=== PATIENT | female | born 1950 | race Caucasian/White ===

== ENCOUNTER → 2017-04-12 | Outpatient (CLI) | payer OTHER, MEDICARE ==
[~2017-04-12] MED LIST: CEPH-13 PO; DIPH-466 PO; ESTR0.5T16 PO; FEXO30TA36 PO; OLME5TAB8 PO; PHEN200T32 PO; PRE10 PO
== END ==
LOC: LAB 15:00
PROVIDERS: ATTEND Nurse Practitioner Family
DX: E83.19 Other disorders of iron metabolism (principal)
CPT/HCPCS: 36415; 85014; 99195

== ENCOUNTER → 2017-06-02 | Outpatient (CLI) | payer OTHER ==
[2017-06-02 14:33] VITALS: BP 130/90
[2017-06-02 15:59] VITALS: BP 136/92
== END ==
LOC: SPU 07:39
PROVIDERS: ATTEND Nurse Practitioner Family
DX: E83.19 Other disorders of iron metabolism (principal)
CPT/HCPCS: 85014; 99195

== ENCOUNTER → 2017-08-12 | Outpatient (CLI) | payer OTHER | LOC: SPU 08-04 07:34 | PROVIDERS: ATTEND Nurse Practitioner Family | DX: E83.19 Other disorders of iron metabolism (principal) | CPT/HCPCS: 85014; 99195 ==

== ENCOUNTER → 2017-12-16 | Outpatient (CLI) | payer OTHER | LOC: LAB 12:43 | PROVIDERS: ATTEND Urology | DX: N39.0 Urinary tract infection, site not specified (principal); R82.79 Other abnormal findings on microbiological examination of urine | CPT/HCPCS: 81001; 87088 ==

== ENCOUNTER 2017-12-27 08:59 | Outpatient (RCR) | payer OTHER ==
[2017-09-29 16:13] VITALS: BP 148/90
[2017-11-03 13:19] VITALS: BP 133/83
[2017-11-03 13:52] VITALS: BP 134/90
[2017-12-27] MEDS ORDERED: ALPR-429 PO (09:14)
[2017-12-27] MEDS ORDERED: NORE1TAB PO (09:14)
[2017-12-27] MEDS ORDERED: LISI2.5T60 PO (09:14)
[2017-12-27] MEDS ORDERED: FURO20TA19 PO (09:14)
== END 2017-12-27 10:33 | disposition home or self-care (01) ==
LOC: ONC 08:59 → SPU 10:33
PROVIDERS: ATTEND Nurse Practitioner Family
DX: E83.19 Other disorders of iron metabolism (principal)
CPT/HCPCS: 36415; 82728; 85014; 85018

== ENCOUNTER 2018-03-10 14:27 | Outpatient (RCR) | payer OTHER ==
[2017-12-27 09:14] VITALS: BP 147/90
--- NOTE | 2017-12-28 18:24 | ONCOLOGY FOLLOW UP NOTE ---
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 She is here for followup. HISTORY OF PRESENT ILLNESS Ms. Sofia returns. Her history is consistent with hemochromatosis as she had significant elevated ferritin in her premenopausal life many years ago and did receive the recommendation of phlebotomy. This improved quickly; however, when she became postmenopausal, her issues recurred. Her ferritin has been as high as 1600 in 2016. She has been getting phlebotomies monthly since that time which have only improved her ferritin down to 290. 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 She does struggle with some mild obstructive sleep apnea, intolerance of poor air quality with migraine headaches and other symptoms similar to asthma. She is having a very particular time this year given the poor air quality. 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 No new symptoms. Her ferritin has been improved. She is wondering if she can reduce the frequency of her phlebotomies from once a month to every two months, and I think this is reasonable. While I would like to get her ferritin below 100, she does not have the formal diagnosis of hemochromatosis and does have the potential to become more anemic if we push her level down further; this, I think an appropriate goal is to keep her ferritin less than 500 to balance these issues. She understands I would like to be as close to 100 as possible, though. PAST MEDICAL HISTORY 1. Mild obstructive sleep apnea. 2. Reactive asthma to air allergens, particularly in smoke. 3. Elevated ferritin, strongly suspect hereditary hemochromatosis, but not a classical form. 4. Elevated blood pressure. 5. Anxiety. MEDICATIONS 1. Lasix 20 mg as needed. 2. Xanax 0.5 mg as needed. 3. Lisinopril 2.5 mg daily. 4. Preeti daily. 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 FAMILY HISTORY She states that her mother likely had similar problems, but not definitive. REVIEW OF SYSTEMS CONSTITUTIONAL: No fevers, chills, significant fatigue, or weight loss. She has had some weight gain in the postmenopausal phase, but I do not think this is related. PSYCHIATRIC: Controlled anxiety. Otherwise negative. HEENT: Positive migraine headaches intermittently. CARDIOVASCULAR: No chest pain, dyspnea on exertion, edema, issues with her heart. RESPIRATORY: Positive need for nocturnal oxygen with sleep apnea. She has started CPAP as well, and this has been helpful. GASTROINTESTINAL: No nausea or vomiting. GENITOURINARY: No dysuria or hematuria. MUSCULOSKELETAL: No weakness or joint pain. ENDOCRINE: No heat or cold intolerance. Remainder of 14 review of systems otherwise negative. PHYSICAL EXAMINATION VITAL SIGNS: Blood pressure 147/90, pulse 97, respiratory rate 16, temperature 98.7 Fahrenheit, oxygen saturation 92% on room air. Weight 87.6 kg. Pain 2/10, fatigue 8/10. GENERAL: Stable condition, resting comfortably in chair. HEENT: Normocephalic, atraumatic. CARDIOVASCULAR: Regular rate and rhythm. LUNGS: Clear. ABDOMEN: Soft, nontender. No organomegaly or masses. EXTREMITIES: No clubbing, cyanosis, or edema. SKIN: No concerning findings. Remainder of physical exam otherwise unremarkable. IMPRESSION AND PLAN Ms. Sofia is a pleasant, 67-year-old female with the followin. Elevated ferritin, and I strongly suspect a variant of hereditary hemochromatosis given the history. She requires phlebotomies every one to two months. With this, her ferritin is only down to 290s, so I anticipate this will be a life-long issue. With that, though, I believe we can prevent end-organ damage with her liver, heart, or joints. She has no arthralgias of concern, thankfully. I answered all of her many questions about hemochromatosis and iron management today. It was a great pleasure meeting her today. Will continue to follow her in our clinic. Given the change in the frequency, I would like her to see our nurse practitioner around the new year, and then I will see her approximately six months after that time if she continues to be doing well. If her ferritin goes above 500, she will need to increase the frequency of her phlebotomies. OSORIO
[2018-01-03 10:12] VITALS: BP 181/88
[~2018-03-10 14:27] MED LIST changes: +ALPR-429 PO; +FURO20TA19 PO; +LISI2.5T60 PO; +NORE1TAB PO
[2018-03-10 14:57] VITALS: BP 143/77
[2018-03-10 15:17] LABS: PLATELET COUNT, AUTOMATED 214 K/uL (150-450)
== END 2018-03-27 ==
LOC: SPU 14:27
PROVIDERS: ATTEND Internal Medicine
DX: R79.89 Other specified abnormal findings of blood chemistry (principal); Z78.0 Asymptomatic menopausal state; Z79.899 Other long term (current) drug therapy
CPT/HCPCS: 36415; 85014; 85025; 99212

== ENCOUNTER 2018-06-29 14:58 | Outpatient (RCR) | payer OTHER ==
[2018-04-12 14:44] VITALS: BP 138/85
[2018-04-12 15:36] VITALS: BP 121/87
[2018-05-24 10:04] VITALS: BP 145/89
--- NOTE | 2018-05-24 13:02 | SCH[facility]ER ONCOLOGY NOTE ---
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 She did not test positive for the classical forms but her history is very consistent with this. Here for followup. HISTORY OF PRESENT ILLNESS Ms. Sofia returns. As noted, her history is consistent with hemochromatosis and her ferritins range between 200 and 600 with phlebotomies. Her ferritin has been as high at 1600 in 2016 when she was diagnosed. She had elevated ferritin in her premenopausal life and did receive the recommendation of phlebotomy. However, this did not become clinically significant until she became postmenopausal. We are trying to do phlebotomy every one to two months. We recently extended the interval between each phlebotomy but now we need to increase the frequency again as her levels have gone up. She has mild obstructive sleep apnea, which is now treat with CPAP and this is very helpful. She does struggle with poor air quality with migraines and symptoms similar to asthma. She continues to work full-time and has multiple classes today. We are trying to keep her ferritin below 500 while balancing anemia. Ideally, it would be as close to 100 as possible but this has been struggle as she becomes anemic. PAST MEDICAL HISTORY 1. Mild obstructive sleep apnea. 2. Reactive asthma to air allergens, particularly in smoke. 3. Elevated ferritin, strongly suspect hereditary hemochromatosis, but not a classical form. 4. Elevated blood pressure. 5. Anxiety. MEDICATIONS 1. Lasix 20 mg as needed. 2. Xanax 0.5 mg as needed. 3. Lisinopril 2.5 mg daily. 4. Preeti daily. 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 FAMILY HISTORY She states that her mother likely had similar problems, but not definitive. REVIEW OF SYSTEMS CONSTITUTIONAL: No fevers, chills, significant fatigue, or weight loss. She has had some weight gain in the postmenopausal phase, but I do not think this is related. PSYCHIATRIC: Controlled anxiety. Otherwise negative. HEENT: Positive migraine headaches intermittently. CARDIOVASCULAR: No chest pain, dyspnea on exertion, edema, issues with her heart. RESPIRATORY: Positive need for nocturnal oxygen with sleep apnea. She has started CPAP as well, and this has been helpful. GASTROINTESTINAL: No nausea or vomiting. GENITOURINARY: No dysuria or hematuria. MUSCULOSKELETAL: No weakness or joint pain. ENDOCRINE: No heat or cold intolerance. Remainder of 14 review of systems otherwise negative. PHYSICAL EXAMINATION VITAL SIGNS: Blood pressure 145/80, pulse 81, respiratory rate 16, temperature 97.7 Fahrenheit, oxygen saturation 96% on room air. Weight 87.5 kg. Pain 0/10, fatigue 3/10, which she attributes to a recent change in her thyroid medication. GENERAL: Stable condition, resting comfortably in chair. HEENT: Normocephalic, atraumatic. CARDIOVASCULAR: Regular rate and rhythm. LUNGS: Clear. ABDOMEN: Soft, nontender, nondistended. EXTREMITIES: No clubbing, cyanosis, or edema. Remainder of physical exam otherwise unremarkable. IMPRESSION AND PLAN Ms. Sofia is a very pleasant, 67-year-old female with the followin. Elevated ferritin and I strongly suspect a variant of hereditary hemochromatosis given her history. She requires phlebotomies every one to two months. We will change her threshold to 36% for hematocrit instead of 42%. I answered all of her many questions today about hemochromatosis and iron management as well as ferritin and acute phase reactants. 2. Hypothyroidism. She recently re-started levothyroxine generic but is having side effects, which may be related to an additive in the medication as I would expect her energy to improve, not worsen with replacement. I recommend that the primary care provider consider transitioning to Synthroid or Parnell Thyroid. We discussed the pros and cons of each of these including cost with Synthroid as well as lack of consistent dose with the Parnell Thyroid. However, given the fact that I am worried she is reacting to something in the generic levothyroxine, I think this is appropriate. I answered all of her many questions today. I would like to see her every three to six months. Billing: Return visit, level 4. Total time 30 minutes, counseling time 20. MTDD
[2018-05-25 11:42] VITALS: BP 143/91
[2018-05-25 12:59] VITALS: BP 126/78
[~2018-06-29 14:58] MED LIST changes: +DEXTROSE 5%(*) 100 ML BAG 100 ML IVPB PRN; +LIDOCAINE/SOD BICARB 8.4% SYR ID PRN; +NS(*) 0.9% 100 ML BAG 100 ML IVPB PRN
[2018-06-29 15:12] VITALS: BP 128/90
[2018-06-29 16:10] VITALS: BP 143/89
== END 2018-07-10 ==
LOC: SPU 14:58
PROVIDERS: ATTEND Internal Medicine
DX: R79.89 Other specified abnormal findings of blood chemistry (principal); E03.9 Hypothyroidism, unspecified; Z78.0 Asymptomatic menopausal state
CPT/HCPCS: 85014; 99195; 99212

== ENCOUNTER 2018-08-10 07:45 | Outpatient (RCR) | payer OTHER ==
[~2018-08-10 07:45] MED LIST changes: -DEXTROSE 5%(*) 100 ML BAG 100 ML IVPB PRN; -LIDOCAINE/SOD BICARB 8.4% SYR ID PRN; -NS(*) 0.9% 100 ML BAG 100 ML IVPB PRN
[2018-09-27] MEDS ORDERED: THYROID MEDICATION PO (14:20)
== END 2018-10-19 12:10 | disposition home or self-care (01) ==
LOC: SPU 07:45
PROVIDERS: ATTEND Internal Medicine
DX: R79.89 Other specified abnormal findings of blood chemistry (principal)
CPT/HCPCS: 85014

== ENCOUNTER 2018-09-27 14:00 | Outpatient (RCR) | payer OTHER ==
[2018-08-12 15:06] VITALS: BP 133/90
[2018-08-12 15:51] VITALS: BP 128/74
[2018-09-27 14:14] VITALS: BP 138/93
[2018-09-27] MEDS ORDERED: THYROID MEDICATION PO (14:20)
[2018-09-27 14:38] VITALS: BP 140/83
== END 2018-11-09 ==
LOC: SPU 14:00
PROVIDERS: ATTEND Internal Medicine
DX: R79.89 Other specified abnormal findings of blood chemistry (principal)
CPT/HCPCS: 36415; 85014; 99195